=== PATIENT | female | born 1990 | race Caucasian/White ===

== ENCOUNTER 2016-06-13 10:33 | Emergency (ER) | payer MEDICAID ==
[~2016-06-13] VITALS: Ht 162.6 cm; Wt 63.5 kg
[2016-06-13 10:40] VITALS: BP 125/75
[2016-06-13] MEDS ORDERED: SULF1TAB24 PO (10:46)
--- NOTE | 2016-06-13 10:46 | PHYS DOC ---
Adult General Chief Complaint Chief Complaint: ABSCESS HPI HPI Patient is a 26 year old female with no significant medical history who presents with an abscess on the left nostril that began 3 days ago. Patient states she had a pimple in the area and she picked on it and now the area is swollen and red. Patient denies any fever. Review of Systems Review of Systems Constitutional: Denies fever or chills [] Eyes: Denies change in visual acuity, redness, or eye pain [] HENT: Denies nasal congestion or sore throat [] : Denies dysuria or hematuria [] Musculoskeletal: Denies back pain or joint pain [] Integument: Left nostril abscess Neurologic: Denies headache, focal weakness or sensory changes [] Endocrine: Denies polyuria or polydipsia [] Physical Exam Physical Exam Constitutional: Well developed, well nourished, no acute distress, non-toxic appearance. [] HENT: Normocephalic, atraumatic, bilateral external ears normal, oropharynx moist, no oral exudates, nose normal. [] Eyes: PERRLA, EOMI, conjunctiva normal, no discharge. [] Skin: Left lower medial nostril with an open wound approximately 0.5 x 0.5 with surrounding 1 cm cellulitis. The area is warm and tender to palpate but not fluctuant. There is no drainage from the area. Back: No tenderness, no CVA tenderness. [] Extremities: No tenderness, no cyanosis, no clubbing, ROM intact, no edema. [] Neurologic: Alert and oriented X 3, normal motor function, normal sensory function, no focal deficits noted. [] Psychologic: Affect normal, judgement normal, mood normal. [] EKG EKG [] Radiology/Procedures Radiology/Procedures [] Course & Med Decision Making Course & Med Decision Making Pertinent Labs and Imaging studies reviewed. (See chart for details) Patient has an abscess on the lower nostril that began as a pimple. There is nothing to drain from the area. Tetanus is up-to-date. Discharged Bactrim for 10 days. Instructed to keep the area clean and dry. Follow-up with PCP in 1-2 weeks as needed. Dragon Disclaimer Dragon Disclaimer This electronic medical record was generated, in whole or in part, using a voice recognition dictation system. Departure Departure Impression: Primary Impression: Abscess of nose Disposition: 01 HOME, SELF-CARE Condition: STABLE Patient Instructions: Abscess Additional Instructions: You were seen for an abscess of the left nostril. Keep the area clean and dry. You can apply warm compresses to the area twice a day. Take the prescribed antibiotics as ordered and complete them. Follow-up with your doctor in 1-2 weeks. Scripts Sulfamethoxazole/Trimethoprim (BACTRIM DS TABLET) 1 Each Tablet 1 TAB PO BID, #20 TAB Prov: BREA JOHNSON APRN 06/13/16 BREA JOHNSON APRN June 13, 2016 10:46
== END 2016-06-13 10:50 | disposition home or self-care (01) ==
LOC: ER 10:33
DX: J34.0 Abscess, furuncle and carbuncle of nose (principal)
CPT/HCPCS: 99283

== ENCOUNTER 2016-07-28 17:39 | Emergency (ER) | payer MEDICAID ==
[~2016-07-28] VITALS: Ht 165.1 cm; Wt 66.2 kg
[~2016-07-28 17:39] MED LIST: SULF1TAB24 PO
[2016-07-28 18:08] VITALS: BP 111/55
--- NOTE | 2016-07-28 18:55 | PHYS DOC ---
Past Medical History Past Medical History: No Pertinent History Past Surgical History: Other Additional Past Surgical Histo: Bilateral inguinal hernia. Alcohol Use: Occasionally Drug Use: None Adult General Chief Complaint Chief Complaint: SORE THROAT HPI HPI Patient is a 26 year old female presents to the emergency department stating that a few days ago she was on the brake she ate and oriented in which she fell Contact. Patient states she presents to the emergency department feeling as though there is something still stuck in the left side of her throat which is causing her to have some pain and discomfort up into her left ear. She denies any fever, chills or any nausea or vomiting. She does state she's been having problems with allergies in which she's been taken Zyrtec for. Review of Systems Review of Systems Constitutional: Denies fever or chills [] Eyes: Denies change in visual acuity, redness, or eye pain [] HENT: Denies nasal congestion C/o sore throat [] Respiratory: Denies cough or shortness of breath [] Cardiovascular: No additional information not addressed in HPI [] GI: Denies abdominal pain, nausea, vomiting, bloody stools or diarrhea [] : Denies dysuria or hematuria [] Musculoskeletal: Denies back pain or joint pain [] Integument: Denies rash or skin lesions [] Neurologic: Denies headache, focal weakness or sensory changes [] Endocrine: Denies polyuria or polydipsia [] Allergies Allergies Allergies Coded Allergies Type Severity Reaction Last Updated Verified No Known Drug Allergies 07/28/16 No Physical Exam Physical Exam Constitutional: Well developed, well nourished, no acute distress, non-toxic appearance. [] HENT: Normocephalic, atraumatic, bilateral external ears normal, oropharynx moist, no oral exudates, nose normal. Bilateral tympanic membranes appear to be normal although bulging. No frontal or maxillary sinus tenderness noted. Patient with redness noted in the throat although no erythematous no exudate noted. Patient with bilateral anterior cervical adenopathy noted. Eyes: PERRLA, EOMI, conjunctiva normal, no discharge. [] Neck: Normal range of motion, no tenderness, supple, no stridor. [] Cardiovascular:Heart rate regular rhythm, no murmur [] Lungs & Thorax: Bilateral breath sounds clear to auscultation []] Skin: Warm, dry, no erythema, no rash. [] Back: No tenderness Extremities: No tenderness, no cyanosis, no clubbing, ROM intact, no edema. [] Neurologic: Alert and oriented X 3, normal motor function, normal sensory function, no focal deficits noted. [] Psychologic: Affect normal, judgement normal, mood normal. [] Current Patient Data Vital Signs Vital Signs Date Time Temp Pulse Resp B/P (MAP) Pulse Ox O2 Delivery O2 Flow Rate FiO2 07/28/16 18:08 98.5 84 16 100 Room Air 98.5 EKG EKG [] Radiology/Procedures Radiology/Procedures [] Course & Med Decision Making Course & Med Decision Making Pertinent Labs and Imaging studies reviewed. (See chart for details) Recommended patient to continue using her Zyrtec at home. Also recommended plenty of fluids. Tylenol or ibuprofen for fever chills or generalized body aches and discomfort. Patient will be discharged home in stable condition. Signs and symptoms to return back to emergency department as been provided. Patient agrees with discharge instructions treatment regimens and follow-up recommendations. [] Dragon Disclaimer Dragon Disclaimer This electronic medical record was generated, in whole or in part, using a voice recognition dictation system. Departure Departure Impression: Primary Impression: Pharyngitis Disposition: HOME, SELF-CARE Condition: STABLE Referrals: NO PCP (PCP) Patient Instructions: Viral and Bacterial Pharyngitis, [id number] Additional Instructions: Rapid strep was negative. Activity as tolerated. Continue using her Zyrtec at home as prescribed by surgical coordinator over-the- counter. Drink plenty of fluids. Tylenol or ibuprofen for fever chills or generalized body aches and discomfort. Follow-up to primary care physician next 5-7 days. Return back to emergency percent symptoms of become worse. JEROME UNDERWOOD [employer] AGENT Jul 28, 2016 18:55
[2016-07-29 14:21] LABS: NEGATIVE OBC STREP NEG; POSITIVE OBC STREP POS
== END 2016-07-28 19:08 | disposition home or self-care (01) ==
LOC: ER 17:39
DX: J02.9 Acute pharyngitis, unspecified (principal)
CPT/HCPCS: 87070; 87880; 99283

== ENCOUNTER 2016-11-08 19:34 | Emergency (ER) | payer MEDICAID ==
[~2016-11-08] VITALS: Ht 165.1 cm; Wt 69.9 kg
[2016-11-08 20:00] VITALS: BP 118/60
--- NOTE | 2016-11-08 20:12 | PHYS DOC ---
Past Medical History Past Medical History: No Pertinent History Past Surgical History: Other Additional Past Surgical Histo: Bilateral inguinal hernia. Alcohol Use: Occasionally Drug Use: None Adult General Chief Complaint Chief Complaint: ANKLE PROBLEM HPI HPI Patient is a 26 year old female presents to the emergency department stating that she rolled her left ankle yesterday. She states that she is having pain on the left lateral part of the ankle. Patient has been able to ambulate however she did state she was at work today and had some numbness and tingling down to her toe. She states that she stands and has to boxed things. She is taken ibuprofen 800 mg at noon today. At the current time she denies any numbness or tingling in the foot area. Peripheral pulses 2+ cap refill brisk less than 2 seconds good sensation noted. Review of Systems Review of Systems Constitutional: Denies fever or chills [] Eyes: Denies change in visual acuity, redness, or eye pain [] HENT: Denies nasal congestion or sore throat [] Respiratory: Denies cough or shortness of breath [] Cardiovascular: No additional information not addressed in HPI [] GI: Denies abdominal pain, nausea, vomiting, bloody stools or diarrhea [] : Denies dysuria or hematuria [] Musculoskeletal: Denies back pain. Complaint of left ankle pain and discomfort. Integument: Denies rash or skin lesions [] Neurologic: Denies headache, focal weakness or sensory changes [] Endocrine: Denies polyuria or polydipsia [] Current Medications Current Medications Current Medications Medications (Trade) Dose Ordered Sig/[facility] Start Time Stop Time Status Last Admin Dose Admin Ibuprofen (Motrin) 800 mg 1X ONCE 11/08/16 20:15 11/08/16 20:18 DC Allergies Allergies Allergies Coded Allergies Type Severity Reaction Last Updated Verified No Known Drug Allergies 07/28/16 No Physical Exam Physical Exam Constitutional: Well developed, well nourished, no acute distress, non-toxic appearance. [] HENT: Normocephalic, atraumatic, bilateral external ears normal, oropharynx moist, no oral exudates, nose normal. [] Eyes: PERRLA, EOMI, conjunctiva normal, no discharge. [] Neck: Normal range of motion, no tenderness, supple, no stridor. [] Cardiovascular:Heart rate regular rhythm Lungs & Thorax: No respiratory distress noted Skin: Warm, dry, no erythema, no rash. [] ] Extremities: Left lateral ankle tenderness, no cyanosis, no clubbing, ROM intact , no edema. Slight swelling noted no discoloration no redness noted tenderness noted as mentioned. Peripheral pulses 2+ cap refill brisk less than 2 seconds. Good sensation noted to the toes patient is able to move the toes without difficulty. Neurologic: Alert and oriented X 3, normal motor function, normal sensory function, no focal deficits noted. [] Psychologic: Affect normal, judgement normal, mood normal. [] Current Patient Data Vital Signs Vital Signs Date Time Temp Pulse Resp B/P (MAP) Pulse Ox O2 Delivery O2 Flow Rate FiO2 11/08/16 20:00 98.3 88 16 99 Room Air 98.3 EKG EKG [] Radiology/Procedures Radiology/Procedures [] Course & Med Decision Making Course & Med Decision Making Pertinent Labs and Imaging studies reviewed. (See chart for details) X-rays were negative for any bony abnormalities per Dr. Good. Patient will be placed in the Air-Stirrup splint with Lopez wrap. Recommended ibuprofen 800 mg every 8 hours. Also recommended ice packs on 20 minutes off 20 minutes several times a day elevation as much as possible. She'll be provided with orthopedic name and number to follow up with if she continues to have pain and discomfort. Patient is to wear the Lopez wrap for the next 5-7 days in the Air-Stirrup splint for the next 7-10 days. Patient was provided with signs and symptoms to return back to emergency department. All questions and concerns been answered at patient's bedside. [] Dragon Disclaimer Dragon Disclaimer This electronic medical record was generated, in whole or in part, using a voice recognition dictation system. Departure Departure Impression: Primary Impression: Left ankle sprain Disposition: 01 HOME, SELF-CARE Condition: STABLE Referrals: NO PCP (PCP) TASH CASILLAS MD Patient Instructions: Ankle Sprain, [id number] Additional Instructions: Your x-rays are negative for any bony abnormalities. Wear the Lopez wrap for the next 5-7 days. Wear the Air-Stirrup splint for the next 7-10 days. Ibuprofen 800 mg every 8 hours to help with pain and inflammation. Take this medication with food to prevent stomach upset. Ice packs on 20 minutes off 20 minutes several times a day. Elevation as much as possible. Follow-up with orthopedic as needed if you're pain continues longer than a week. Return back to emergency department for signs and symptoms of become worse. Problem Qualifiers Primary Impression: Left ankle sprain Encounter type: initial encounter Involved ligament of ankle: unspecified ligament Qualified Codes: S93.402A - Sprain of unspecified ligament of left ankle, initial encounter JEROME UNDERWOOD [employer] TECHNICIAN Nov 08, 2016 20:12
[2016-11-08] MEDS: IBUPROFEN 800 MG TABLET. PO ONE (20:40)
--- NOTE | 2016-11-09 08:48 | RAD ---
Left ankle, 3 views, 11/08/2016: History: Twisting injury, pain Small calcific densities at the tips of the medial and lateral malleoli are well corticated and are probably old. No definite acute fracture or dislocation is identified. There is mild soft tissue swelling over the lateral malleolus. IMPRESSION: No acute bony abnormality is detected.
== END 2016-11-08 20:50 | disposition home or self-care (01) ==
LOC: ER 19:34
DX: S93.402A Sprain of unspecified ligament of left ankle, initial encounter (principal); X58.XXXA Exposure to other specified factors, initial encounter; Y93.89 Activity, other specified; Y92.89 Other specified places as the place of occurrence of the external cause; Y99.8 Other external cause status
CPT/HCPCS: 29515; 73610; 99284-25

== ENCOUNTER 2017-01-02 18:46 | Emergency (ER) | payer MEDICAID ==
[~2017-01-02] VITALS: Ht 165.1 cm; Wt 70.3 kg
[2017-01-02 18:46] VITALS: BP 123/81
[2017-01-02] MEDS ORDERED: PRED-220 PO (19:14)
[2017-01-02] MEDS ORDERED: TRAM50TA PO (19:14)
--- NOTE | 2017-01-02 19:14 | PHYS DOC ---
Past Medical History Past Medical History: No Pertinent History Past Surgical History: Other Additional Past Surgical Histo: Bilateral inguinal hernia. Alcohol Use: Occasionally Drug Use: None Adult General Chief Complaint Chief Complaint: EARACHE/EAR PAIN [employer] HPI Patient is a 26 year old female presents to the ED complaining of ear pain 3 days. Patient states she has a history of ear infections as a kid. States she took prednisone a few months ago and it improved her ear pain. Associated symptoms include congestion. Patient also complains of left ankle pain. History of injury a few months ago. Negative X-rays after. States she is on her feet alot at work. No new injury. States she started wearing boots and the pain has improved. Denies cough, sore throat, headache, fever, calf pain, dizziness, weakness, chest pain or shortness of breath. Review of Systems Review of Systems Constitutional: Denies fever or chills [] Eyes: Denies change in visual acuity, redness, or eye pain [] HENT: Complains of ear pain. Denies nasal congestion or sore throat [] Respiratory: Denies cough or shortness of breath [] Cardiovascular: No additional information not addressed in HPI [] GI: Denies abdominal pain, nausea, vomiting, bloody stools or diarrhea [] : Denies dysuria or hematuria [] Musculoskeletal: Complains of left ankle pain. Denies back pain. [] Integument: Denies rash or skin lesions [] Neurologic: Denies headache, focal weakness or sensory changes [] Endocrine: Denies polyuria or polydipsia [] All other systems were reviewed and found to be within normal limits, except as documented in this note. Allergies Allergies Allergies Coded Allergies Type Severity Reaction Last Updated Verified No Known Drug Allergies 07/28/16 No Physical Exam Physical Exam Constitutional: Well developed, well nourished, no acute distress, non-toxic appearance. [] HENT: Normocephalic, atraumatic, bilateral external ears normal, MILD BILATERAL TM BULGING. NO ERYTHEMA OR SIGNS OF INFECTION. oropharynx moist, no oral exudates, nose normal. [] Eyes: PERRLA, EOMI, conjunctiva normal, no discharge. [] Neck: Normal range of motion, no tenderness, supple, no stridor. [] Cardiovascular:Heart rate regular rhythm, no murmur [] Lungs & Thorax: Bilateral breath sounds clear to auscultation [] Abdomen: Bowel sounds normal, soft, no tenderness, no masses, no pulsatile masses. [] Skin: Warm, dry, no erythema, no rash. [] Back: No tenderness, no CVA tenderness. [] Extremities: No tenderness, no cyanosis, no clubbing, ROM intact, no edema. [] Neurologic: Alert and oriented X 3, normal motor function, normal sensory function, no focal deficits noted. [] Psychologic: Affect normal, judgement normal, mood normal. [] Current Patient Data Vital Signs Vital Signs Date Time Temp Pulse Resp B/P (MAP) Pulse Ox O2 Delivery O2 Flow Rate FiO2 01/02/17 18:46 98.0 86 16 99 Room Air 98.0 EKG EKG [] Radiology/Procedures Radiology/Procedures [] Course & Med Decision Making Course & Med Decision Making Pertinent Labs and Imaging studies reviewed. (See chart for details) []No new injury. No overlying skin changes, swelling or tenderness on ankle exam. No Xray warranted. Will treat with prednisone outpatient. Will prescribe tramadol for patients ankle pain. Discussed follow-up with PCP this week and reasons to return to the ED. Patient understands and agrees with plan. Dragon Disclaimer Dragon Disclaimer This electronic medical record was generated, in whole or in part, using a voice recognition dictation system. Departure Departure Impression: Primary Impression: Ankle pain Additional Impressions: Otalgia Congestion of both ears Disposition: 01 HOME, SELF-CARE Condition: STABLE Referrals: NO PCP (PCP) SANTA LYNCH MD Patient Instructions: Ankle Pain, Otalgia Scripts Tramadol Hcl (TRAMADOL HCL) 50 Mg Tablet 1 TAB PO PRN Q6HRS, #12 TAB Prov: DANISH COSBY 01/02/17 Prednisone (PREDNISONE) 10 Mg Tablet 30 MG PO DAILY, #5 TAB Prov: DANISH COSBY 01/02/17 Problem Qualifiers DANISH COSBY Jan 02, 2017 19:14
== END 2017-01-02 19:31 | disposition home or self-care (01) ==
LOC: ER 18:46
DX: H92.03 Otalgia, bilateral (principal); H83.8X3 Other specified diseases of inner ear, bilateral; M25.572 Pain in left ankle and joints of left foot
CPT/HCPCS: 99283

== ENCOUNTER 2017-01-09 20:58 | Emergency (ER) | payer MEDICAID ==
[~2017-01-09] VITALS: Ht 165.1 cm; Wt 72.1 kg
[~2017-01-09 20:58] MED LIST changes: +PRED-220 PO; +TRAM50TA PO
[2017-01-09 21:10] VITALS: BP 128/73
[2017-01-09] MEDS ORDERED: PSEU120T9 PO (21:15)
[2017-01-09] MEDS ORDERED: FLUT9.9S NS (21:15)
--- NOTE | 2017-01-09 21:15 | PHYS DOC ---
Past Medical History Past Medical History: No Pertinent History Past Surgical History: Other Additional Past Surgical Histo: Bilateral inguinal hernia. Alcohol Use: Occasionally Drug Use: None Adult General Chief Complaint Chief Complaint: EARACHE/EAR PAIN HPI HPI Patient is a 26 year old E male presents to the emergency department with bilateral ear pain. Patient states she was evaluated in the emergency department one week ago and diagnosed with upper respiratory infection placed on prednisone. She states she felt well while she was on the prednisone and has been off prednisone now for one day. She states that she has bilateral ear pain. No fever. No cough. No sore throat. Review of Systems Review of Systems Constitutional: Denies fever or chills [] Eyes: Denies change in visual acuity, redness, or eye pain [] HENT: Denies nasal congestion or sore throat , complaining of bilateral ear pain [] Respiratory: Denies cough or shortness of breath [] Cardiovascular: No additional information not addressed in HPI [] GI: Denies abdominal pain, nausea, vomiting, bloody stools or diarrhea [] : Denies dysuria or hematuria [] Musculoskeletal: Denies back pain or joint pain [] Integument: Denies rash or skin lesions [] Neurologic: Denies headache, focal weakness or sensory changes [] Endocrine: Denies polyuria or polydipsia [] All other systems were reviewed and found to be within normal limits, except as documented in this note. Allergies Allergies Allergies Coded Allergies Type Severity Reaction Last Updated Verified No Known Drug Allergies 07/28/16 No Physical Exam Physical Exam Constitutional: Well developed, well nourished, no acute distress, non-toxic appearance. [] HENT: Normocephalic, atraumatic, bilateral external ears normal, left tympanic membranes retracted, right tympanic membrane with effusion, clear fluid, oropharynx moist, no oral exudates, nose normal. [] Eyes: PERRLA, EOMI, conjunctiva normal, no discharge. [] Neck: Normal range of motion, no tenderness, supple, no stridor. [] Cardiovascular:Heart rate regular rhythm, no murmur [] Lungs & Thorax: Bilateral breath sounds clear to auscultation [] Abdomen: Bowel sounds normal, soft, no tenderness, no masses, no pulsatile masses. [] Skin: Warm, dry, no erythema, no rash. [] Back: No tenderness, no CVA tenderness. [] Extremities: No tenderness, no cyanosis, no clubbing, ROM intact, no edema. [] Neurologic: Alert and oriented X 3, normal motor function, normal sensory function, no focal deficits noted. [] Psychologic: Affect normal, judgement normal, mood normal. [] EKG EKG [] Radiology/Procedures Radiology/Procedures [] Course & Med Decision Making Course & Med Decision Making Pertinent Labs and Imaging studies reviewed. (See chart for details) [] Dragon Disclaimer Dragon Disclaimer This electronic medical record was generated, in whole or in part, using a voice recognition dictation system. Departure Departure Impression: Primary Impression: Eustachian tube dysfunction Disposition: HOME, SELF-CARE Condition: STABLE Referrals: NO PCP (PCP) [facility] Patient Instructions: Otalgia Scripts Pseudoephedrine Hcl (SUDAFED 12-HOUR) 120 Mg Tablet.er 1 TAB PO BID, #20 TAB Prov: MANUEL SILVA APRN 01/09/17 Fluticasone Propionate (Flonase Allergy Relief) 9.9 Ml [place].susp 2 SPRAYS NS DAILY, #1 BOTTLE Prov: MANUEL SILVA APRN 01/09/17 Problem Qualifiers Primary Impression: Eustachian tube dysfunction Laterality: bilateral Qualified Codes: H69.83 - Other specified disorders of eustachian tube, bilateral MANUEL SILVA APRN Jan 09, 2017 21:15
== END 2017-01-09 21:25 | disposition home or self-care (01) ==
LOC: ER 20:58
DX: H69.83 Other specified disorders of Eustachian tube, bilateral (principal)
CPT/HCPCS: 99283

== ENCOUNTER 2017-04-20 17:36 | Emergency (ER) | payer MEDICAID ==
[2017-04-20 18:12] LABS: BILIRUBIN,URINE NEGATIVE (NEG); CLARITY,URINE CLEAR; COLOR,URINE YELLOW; GLUCOSE,URINE NEGATIVE (NEG); NITRITE,URINE NEGATIVE (NEG); PH,URINE 5.5; PROTEIN,URINE NEGATIVE (NEG-TRACE); UROBILINOGEN,URINE 0.2 mg/dL (0.2 mg/dL)
[2017-04-20 18:13] LABS: URINE HCG POC HCG NEGATIVE (Negative)
[2017-04-20 18:20] LABS: BACTERIA,URINE FEW /HPF (0-FEW); SQUAMOUS EPITHELIAL CELL,UR MOD /LPF; WBC,URINE TNTC /HPF (0-4)
[2017-04-25 15:28] LABS: CHLAMYDIA PROBE Negative (Negative); GC PROBE Positive (Negative)
== END 2017-04-20 18:49 | disposition home or self-care (01) ==
LOC: ER 17:36
DX: N39.0 Urinary tract infection, site not specified (principal)
CPT/HCPCS: 81001; 81025; 87491; 87591; 99284; Q0111

== ENCOUNTER 2017-04-26 14:25 | Emergency (ER) | payer MEDICAID ==
[2017-04-26] MEDS: cefTRIAXone IM 250 MG VIAL IM (15:11)
[2017-04-26] MEDS: AZITHROMYCIN 250 MG TABLET. PO (15:11)
== END 2017-04-26 16:01 | disposition home or self-care (01) ==
LOC: ER 14:25
DX: A54.9 Gonococcal infection, unspecified (principal); F17.210 Nicotine dependence, cigarettes, uncomplicated
CPT/HCPCS: 96372; 99283-25; J0696; Q0144

== ENCOUNTER 2017-11-30 15:15 | Emergency (ER) | payer SELFPAY ==
[~2017-11-30] VITALS: Ht 165.1 cm; Wt 62.1 kg
[~2017-11-30 15:15] MED LIST changes: +FLUT9.9S NS; +NITR100C62 PO; +PSEU120T9 PO
[2017-11-30 15:25] VITALS: BP 124/74
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
[2017-11-30] MEDS ORDERED: DICL50TA4 PO (16:32)
== END 2017-11-30 16:46 | disposition home or self-care (01) ==
LOC: ER 15:15
DX: M25.561 Pain in right knee (principal); M25.562 Pain in left knee; M25.572 Pain in left ankle and joints of left foot; V43.52XA Car driver injured in collision with other type car in traffic accident, initial encounter; Y93.89 Activity, other specified; Y92.410 Unspecified street and highway as the place of occurrence of the external cause; Y99.8 Other external cause status
CPT/HCPCS: 73564; 73610; 99284

== ENCOUNTER → 2020-11-27 | Outpatient (CLI) | payer OTHER ==
[~2020-11-27] MED LIST changes: +DICL50TA4 PO; +IOHEXOL 240 MG/ML 50ML VIAL. ONE; +IOHEXOL 300 MG/ML 50 ML VIAL. INT CAT ONE
--- NOTE | 2020-11-27 11:50 | RAD ---
DG HYSTEROSALPINGOGRAM W/FLUORO History: Reason: / Spl. Instructions: / History: INFERTILITY, FLUORO TIME 1.1 MIN, OMNI 300 COMPARISON: None TECHNIQUE: Patient was informed of the risks to include pain, infection, and bleeding. All questions were answered. Patient signed a written consent form for hysterosalpingogram. Patient was placed in a supine position on the fluoroscopy table. Speculum was inserted and cervix was cleansed with Betadin e solution. HSG catheter was inserted and secured with balloon inflation. Contrast was injected durin g fluoroscopic visualization, 3 cc of Omnipaque contrast. The balloon was deflated and catheter remov ed. Speculum was removed. There were no immediate complications. FINDINGS: No focal filling defect is identified of the uterus. The left fallopian tube filled immedia tely with spill into the peritoneal cavity. There was delayed filling of the right fallopian tube. Th e right fallopian tube eventually did fill with similar appearance to the left fallopian tube and sim ilar spill into the peritoneal cavity. Fluoroscopy time: 1.1 minute seconds, 13 images. IMPRESSION: 1. Delayed filling of the right fallopian tube with eventual filling and a similar appearance to the left fallopian tube. Electronically signed by: Stalin Sam DO (11/27/2020 11:48 AM) [id number]
== END | disposition home or self-care (01) ==
LOC: RAD 09:24
PROVIDERS: ATTEND Obstetrics & Gynecology
DX: N97.8 Female infertility of other origin (principal); F17.210 Nicotine dependence, cigarettes, uncomplicated; Z79.899 Other long term (current) drug therapy; Z72.89 Other problems related to lifestyle
CPT/HCPCS: 58340; 74740; Q9967